=== PATIENT | female | born 1935 | race Caucasian/White ===

== ENCOUNTER → 2020-02-12 | Outpatient (CLI) | payer MEDICARE, OTHER ==
[~2020-02-12] MED LIST: ALLOPURINOL100 MG PO; CARVEDILOL12.5 MG PO; COUMADIN2.5 M1 PO; FUROSEMIDE40 MG PO; LEVOTHYROXIN0.075 MG PO; LISINOPRIL10 MG PO; LORATADINE10 M1 PO; METFORMIN500 MG PO; OMEPRAZOLE20 MG PO; PRAVASTATIN SOD20 MG PO; ULTRAM50 MG PO; VITAMIN D5000 IU PO
== END | disposition home or self-care (01) ==
LOC: COVID19 12:29
PROVIDERS: ATTEND Family Medicine
DX: Z20.828 Contact with and (suspected) exposure to other viral communicable diseases (principal)